=== PATIENT | male | born 1955 | race Caucasian/White ===

== ENCOUNTER 2022-05-25 21:22 | Emergency (ER) | payer SELFPAY ==
[2022-05-25] MEDS ORDERED: Boostrix 0.5 ML (Tdap) VIAL (>/=7 yrs of age) ONE (22:58)
[2022-05-25] MEDS ORDERED: Clindamycin 150 MG CAP ONE (23:32)
== END 2022-05-25 23:31 | disposition home or self-care (01) ==
LOC: ERS 21:22
DX: S02.2XXA Fracture of nasal bones, initial encounter for closed fracture (principal); S02.842A Fracture of lateral orbital wall, left side, initial encounter for closed fracture; I10 Essential (primary) hypertension; W55.22XA Struck by cow, initial encounter; Z23 Encounter for immunization
CPT/HCPCS: 70450; 70486; 90471; 90715